=== PATIENT | female | born 1980 | race Caucasian/White ===

== ENCOUNTER 2016-08-09 16:07 | Emergency (ER) | payer MEDICAID, SELFPAY ==
[2016-08-09] MEDS ORDERED: predniSONE 20 MG TAB ONE (16:32)
[2016-08-09] MEDS ORDERED: Azithromycin 250 MG TAB ONE (16:32)
[2016-08-09] MEDS ORDERED: Ventolin HFA Inhaler 60 PUFF INHALER ONE (16:50)
[2016-08-09] MEDS ORDERED: Promethazine HCl 25 MG SUPP ONE (16:50)
== END 2016-08-09 17:00 | disposition home or self-care (01) ==
LOC: MADERS 16:07
DX: J40 Bronchitis, not specified as acute or chronic (principal); J32.9 Chronic sinusitis, unspecified; F17.210 Nicotine dependence, cigarettes, uncomplicated
CPT/HCPCS: 94640; J7506; J7620

== ENCOUNTER 2017-04-02 13:14 | Emergency (ER) | payer MEDICAID, SELFPAY ==
[2017-04-02] MEDS ORDERED: MORPHINE 10 MG/ML SYRINGE ONE (13:52)
--- NOTE | 2017-04-02 14:10 | RAD ---
LEFT ANKLE THREE VIEWS: History: Left ankle injury. FINDINGS: Ankle mortise is intact. No acute fracture or dislocation are visible. IMPRESSION: No acute osseous abnormalities are demonstrated. POS: [facility]
--- NOTE | 2017-04-02 14:12 | RAD ---
LEFT FOOT 3 VIEWS: Date: 04/02/17 HISTORY: Twisted ankle stepping off porch. COMPARISON: Foot radiographs from 2015. FINDINGS: There is some fragmentation of the os peroneum, chronic in nature. No acute fracture or malalignment. There is bipartite medial and lateral hallux with sesamoid. Lisfranc interval is maintained. IMPRESSION: Chronic changes. No acute fracture or malalignment. POS: [facility]
== END 2017-04-02 14:35 | disposition home or self-care (01) ==
LOC: MADERS 13:14
DX: S93.402A Sprain of unspecified ligament of left ankle, initial encounter (principal); J45.909 Unspecified asthma, uncomplicated; F17.210 Nicotine dependence, cigarettes, uncomplicated; X50.1XXA Overexertion from prolonged static or awkward postures, initial encounter
CPT/HCPCS: 96372; J2270

== ENCOUNTER 2018-02-12 13:20 | Emergency (ER) | payer OTHER, SELFPAY | END 2018-02-12 13:55 | disposition home or self-care (01) | LOC: MADERS 13:20 | DX: S93.602A Unspecified sprain of left foot, initial encounter (principal); J45.909 Unspecified asthma, uncomplicated; F17.210 Nicotine dependence, cigarettes, uncomplicated; W19.XXXA Unspecified fall, initial encounter | CPT/HCPCS: 99283 ==